=== PATIENT | male | born 1980 | race Caucasian/White ===

== ENCOUNTER 2016-09-29 09:00 | Emergency (ER) | payer BC, OTHER ==
[~2016-09-29] VITALS: Ht 180.3 cm; Wt 82.6 kg
[2016-09-29 09:06] VITALS: TEMP 36.7; Ht 180.3 cm; Wt 82.6 kg
[2016-09-29] MEDS ORDERED: ASPI-390 PO (09:26)
[2016-09-29] MEDS ORDERED: KETOROLAC TROMETHAMINE 30 MG/ML VIAL IV STA (09:33)
--- NOTE | 2016-09-29 09:33 | EMERGENCY ROOM VISIT NOTE ---
History Report prepared by Landen: Jane Chnag Under the Supervision of: Dr. Shakir Mar M.D. First contact with patient: 09:26 Chief Complaint: GROIN PAIN Stated Complaint: EXTREME GROIN PAIN & VOMITING History of Present Illness The patient is a 36 year old male who presents to the Emergency Room with complaints of worsening groin pain that began 3 days ago. The patient states that the day before his pain began, he was pulling a portable air conditioner up stairs and felt something "pop" in his groin. The next morning, he woke up with some discomfort which has since worsened. Last night, the patient began vomiting. He was nauseated about an hour ago, but his nausea has eased up since then. He has not taken his temperature, but has not felt like he had a fever. He has been urinating and having bowel movements normally. He did not take anything for pain today. Source of History: patient Onset: 3 days ago Position: other (groin) Timing: worsening Associated Symptoms: + nausea, + vomiting Review of Systems All systems have been listed, reviewed, and are negative other than those previously mentioned. Please see Additional Medical History Sheet. Past Medical & Surgical Medical Problems: (1) No Known Active Medical Problems Family History Patient reports no known family medical history. Social History Smoking Status: Never Smoker Smokeless Tobacco Use: No Alcohol Use: none Occupation Status: employed Current/Historical Medications Scheduled Ektlmru-Gucqdjpjcoseo-Otwseyjy (Excedrin Migraine), 2 TAB PO DIRECTED Scheduled PRN Ibuprofen Tab (Motrin), 600 MG PO Q6H PRN for Pain Ondansetron Hcl (Zofran), 4 MG PO Q4 PRN for Nausea Oxycodone/Acetaminophen 5MG/325MG (Percocet 5MG/325MG), 1-2 TABLETS PO Q4H PRN for Pain Allergies Coded Allergies: No Known Allergies (Unverified , 09/29/16) Physical Exam Vital Signs Date Time Temp Pulse Resp B/P Pulse Ox O2 Delivery O2 Flow Rate FiO2 09/29/16 12:56 80 18 112/71 98 Room Air 09/29/16 11:16 109/62 09/29/16 09:06 36.7 101 18 111/76 96 Room Air Physical Exam GENERAL: Patient awake, alert, oriented x 3. Patient follows commands. Patient does not appear toxic. Patient is adequately hydrated and well- nourished. SKIN: No erythema, pallor, cyanosis or rash HEENT: Normal head, pupils equal, reactive to light and accommodation. Ears normal. ABDOMEN: Soft, nontender. : Patient has bilateral inguinal hernias with significant tenderness on the left side. Testicles are descended. Scrotum and penis appear normal. No discharge. EXTREMITIES: No signs of trauma or infection. NEUROLOGIC: Cranial nerves II-XII within normal limits. No gross motor sensory function deficits. Medical Decision & Procedures ER Provider Diagnostic Interpretation: Radiology results as stated below per my review and radiologist interpretation: ULTRASOUND KIDNEYS AND BLADDER CLINICAL HISTORY: Left flank pain. COMPARISON STUDY: No priors. TECHNIQUE: Real-time, grayscale, and color flow sonography of the kidneys and bladder is performed. Images are reviewed in the transverse and longitudinal planes. FINDINGS: Kidneys: The kidneys are normal in size and echotexture. The right kidney measures 11.1 cm in length and the left kidney measures 11.7 cm in length. There is no hydronephrosis. An extrarenal pelvis is noted on the left. No shadowing renal calculi are identified. There is no sonographic evidence of contour deforming renal mass lesion. No perinephric fluid is identified. Bladder: The bladder is decompressed and not well evaluated. Ureteral jets were not seen. IMPRESSION: 1. The kidneys are normal in size and without hydronephrosis. 2. The bladder was decompressed and not well evaluated. Electronically signed by: Girish Mireles M.D. 09/29/2016 10:59 AM Dictated Date/Time: 09/29/2016 10:58 AM ABDOMINAL ULTRASOUND. LEFT FLANK ULTRASOUND. HISTORY: Hernia left inguinal hernia. COMPARISON: None. FINDINGS: no evidence for left inguinal hernia. No evidence for flank hernia. IMPRESSION: No evidence for hernia Electronically signed by: Christian Valadez M.D. 09/29/2016 11:33 AM Dictated Date/Time: 09/29/2016 11:32 AM Laboratory Results 09/29/16 09:45 09/29/16 09:45 Test 09/29/16 09:45 09/29/16 11:40 Red Blood Count 5.02 M/uL (4.7-6.1) Mean Corpuscular Volume 88.4 fL (80-100) Mean Corpuscular Hemoglobin 30.7 pg (25-34) Mean Corpuscular Hemoglobin Concent 34.7 g/dl (32-36) RDW Standard Deviation 42.4 fL (36.4-46.3) RDW Coefficient of Variation 13.0 % (11.5-14.5) Mean Platelet Volume 10.7 fL (7.4-10.4) Anion Gap 6.0 mmol/L (3-11) Est Creatinine Clear Calc Drug Dose 96.9 ml/min Estimated GFR () 98.2 Estimated GFR (Non- 84.7 BUN/Creatinine Ratio 15.4 (10-20) Calcium Level 8.5 mg/dl (8.5-10.1) Urine Color DK YELLOW Urine Appearance CLEAR (CLEAR) Urine pH 5.5 (4.5-7.5) Urine Specific [place] 1.031 (1.000-1.030) Urine Protein NEG (NEG) Urine Glucose (UA) NEG (NEG) Urine Ketones TRACE (NEG) Urine Occult Blood NEG (NEG) Urine Nitrite NEG (NEG) Urine Bilirubin NEG (NEG) Urine Urobilinogen NEG (NEG) Urine Leukocyte Esterase TRACE (NEG) Urine WBC (Auto) 1-5 /hpf (0-5) Urine RBC (Auto) 0-4 /hpf (0-4) Urine Hyaline Casts (Auto) 1-5 /lpf (0-5) Urine Epithelial Cells (Auto) 20-30 /lpf (0-5) Urine Bacteria (Auto) NEG (NEG) Laboratory results as stated above per my review. Medications Administered Medications (Trade) Dose Ordered Sig/Mata Route Start Time Stop Time Status Last Admin Dose Admin Ketorolac Tromethamine (Toradol Inj) 30 mg NOW STAT IV 09/29/16 09:33 09/29/16 09:36 DC 09/29/16 09:47 30 MG ED Course 0928: The patient was evaluated in room B6. A complete history and physical examination was performed. 0933: Ordered Toradol Inj 30 mg IV. 1232: Upon reevaluation, the patient appeared to have improvement of his symptoms. I discussed today's findings with the patient. He verbalized agreement of the treatment plan. The patient was discharged home. Medical Decision Nurses notes reviewed. Medical history sheet reviewed. Differential diagnosis includes but is not limited to: Inguinal hernia, incarceration, testicular torsion, kidney stone, ruptured disc. On examination and appears the patient has a left inguinal hernia. Palpation in that area increases pain. Urinalysis does not reveal hematuria. Patient appears slightly dehydrated. Ultrasound of the kidney and inguinal area are negative for hydronephrosis, ureteral calculi or hernia. Despite that I still believe the patient's pain is most likely from a left inguinal hernia which is not incarcerated. The patient will be treated conservatively at this time with ibuprofen during the day and Percocet at night. He was encouraged to avoid any lifting greater than 10 pounds. He is to follow-up with his family physician this week. An MRI would be the test of choice to rule in or rule out a definite hernia. Back pathology remains a possibility as a cause for his pain. [place] Drug Monitoring Program Search Results: patient reviewed within database, no issues identified Impression Primary Impression: Inguinal hernia Scribe Attestation The scribe's documentation has been prepared under my direction and personally reviewed by me in its entirety. I confirm that the note above accurately reflects all work, treatment, procedures, and medical decision making performed by me. Departure Information Dispostion Home / Self-Care Prescriptions Ondansetron Hcl (ZOFRAN) 4 Mg Tab 4 MG PO Q4 Y for Nausea, #10 TAB Prov: Shakir Mar M.D. 09/29/16 Ibuprofen Tab (MOTRIN) 600 Mg Tab 600 MG PO Q6H Y for Pain, #30 TAB Prov: Shakir Mar M.D. 09/29/16 Oxycodone/Acetaminophen 5MG/325MG (PERCOCET 5MG/325MG) Tab 1-2 TABLETS PO Q4H Y for Pain, #20 TAB Prov: Shakir Mar M.D. 09/29/16 Referrals No Doctor, Assigned (PCP) Patient Instructions My [facility] [employer] Additional Instructions 600 mg ibuprofen every 6 hours until pain has resolved. Apply heat intermittently to your left groin area. 1-2 Percocet every 4 hours as needed for more severe pain. Do not drive or operate machinery while taking Percocet. 1 Zofran every 4 hours as needed for nausea. Follow-up with your family physician within the next 7 days. Return here sooner if pain is getting worse. Drink extra fluids. No lifting greater than 10 pounds for the next 10 days.
[2016-09-29 10:05] LABS: HEMATOCRIT 44.4 % (42-52); MEAN CELL VOLUME 88.4 fL (80-100); MEAN CORPUSCULAR HEMOGLOBIN 30.7 pg (25-34); MEAN CORPUSCULAR HGB CONC 34.7 g/dl (32-36); MEAN PLATELET VOLUME 10.7 fL (7.4-10.4); PLATELET COUNT 244 K/uL (130-400); RED BLOOD COUNT 5.02 M/uL (4.7-6.1); WHITE BLOOD COUNT 10.85 K/uL (4.8-10.8)
[2016-09-29 10:18] LABS: BUN/CREATININE RATIO 15.4 (10-20); CALCIUM 8.5 mg/dl (8.5-10.1); CREATININE 1.1 mg/dl (0.60-1.40); POTASSIUM 3.9 mmol/L (3.5-5.1)
--- NOTE | 2016-09-29 11:01 | DIAGNOSTIC IMAGING REPORT ---
ULTRASOUND KIDNEYS AND BLADDER CLINICAL HISTORY: Left flank pain. COMPARISON STUDY: No priors. TECHNIQUE: Real-time, grayscale, and color flow sonography of the kidneys and bladder is performed. Images are reviewed in the transverse and longitudinal planes. FINDINGS: Kidneys: The kidneys are normal in size and echotexture. The right kidney measures 11.1 cm in length and the left kidney measures 11.7 cm in length. There is no hydronephrosis. An extrarenal pelvis is noted on the left. No shadowing renal calculi are identified. There is no sonographic evidence of contour deforming renal mass lesion. No perinephric fluid is identified. Bladder: The bladder is decompressed and not well evaluated. Ureteral jets were not seen. IMPRESSION: 1. The kidneys are normal in size and without hydronephrosis. 2. The bladder was decompressed and not well evaluated. Electronically signed by: Girish Mireles M.D. 09/29/2016 10:59 AM Dictated Date/Time: 09/29/2016 10:58 AM
--- NOTE | 2016-09-29 11:35 | DIAGNOSTIC IMAGING REPORT ---
ABDOMINAL ULTRASOUND. LEFT FLANK ULTRASOUND. HISTORY: Hernia left inguinal hernia. COMPARISON: None. FINDINGS: no evidence for left inguinal hernia. No evidence for flank hernia. IMPRESSION: No evidence for hernia Electronically signed by: Christian Valadez M.D. 09/29/2016 11:33 AM Dictated Date/Time: 09/29/2016 11:32 AM
[2016-09-29 12:03] LABS: MANUAL MICROSCOPIC REQUIRED? NO; REVIEW REQ? NO; URINE APPEARANCE CLEAR (CLEAR); URINE BILIRUBIN NEG (NEG); URINE COLOR DK YELLOW; URINE EPITHELIAL CELL AUTO 20-30 /lpf (0-5); URINE NITRITE NEG (NEG); URINE PH 5.5 (4.5-7.5); URINE SPECIFIC GRAVITY 1.031 (1.000-1.030); UROBILINOGEN NEG (NEG); ZZUR CULT IF INDIC CLEAN CATCH NO
[2016-09-29] MEDS ORDERED: IBUP-1427 PO (12:48)
[2016-09-29] MEDS ORDERED: OXYC-57 PO (12:48)
[2016-09-29 12:56] VITALS: BP 112/71; PULSE 80; O2SAT 98
[2016-09-29] MEDS ORDERED: ONDA4TAB46 PO (13:03)
== END 2016-09-29 12:57 | disposition home or self-care (01) ==
LOC: C.EDB 09:02
DX: K40.90 Unilateral inguinal hernia, without obstruction or gangrene, not specified as recurrent (principal)

== ENCOUNTER → 2016-10-02 | Outpatient (CLI) | payer BC ==
[~2016-10-02] MED LIST: ASPI-390 PO; IBUP-1427 PO; ONDA4TAB46 PO; OPTIRAY 320 IV PRN; OXYC-57 PO
--- NOTE | 2016-10-02 08:15 | DIAGNOSTIC IMAGING REPORT ---
CT SCAN OF THE ABDOMEN AND PELVIS WITH IV CONTRAST CLINICAL HISTORY: Pelvic and groin pain. COMPARISON STUDY: Renal ultrasound dated 09/29/2016. TECHNIQUE: Following the IV administration of 94 cc of Optiray 320, CT scan of the abdomen and pelvis is performed from the lung bases to the proximal femora. Images are reviewed in the axial, sagittal, and coronal planes. IV contrast was administered without complication. Automated dose control exposure was utilized. CT DOSE: 485.70 mGy.cm FINDINGS: Lung bases: The heart is normal in size and without pericardial effusion. The lung bases are clear. Liver: The contrast-enhanced liver is normal in size, contour, and attenuation. There is no intrahepatic biliary ductal dilatation. The hepatic veins and portal veins are patent. Focal fatty infiltration is seen adjacent to the falciform ligament. Gallbladder: Unremarkable. Spleen: Normal in size and attenuation. Pancreas: Unremarkable. Adrenal glands: Unremarkable. Kidneys: The contrast enhanced kidneys are normal in size and without hydronephrosis. There are small bilateral extrarenal pelvises. The kidneys enhance symmetrically. Abdominal vasculature: The abdominal aorta is normal in course and caliber. Bowel: The small bowel and colon are normal in course and caliber. There is moderate colonic fecal retention. The appendix is well-visualized and normal. Peritoneum: There is no intraperitoneal free air or abdominal ascites. There is a small fat-containing umbilical hernia. Lymphadenopathy: None. Pelvic viscera: The bladder is decompressed and grossly unremarkable. The prostate and seminal vesicles are normal as imaged. Pelvic phleboliths are observed. Skeletal structures: No lytic or blastic lesions are seen. IMPRESSION: 1. There are no acute infectious or inflammatory findings in the abdomen or pelvis. 2. Moderate colonic fecal retention. Electronically signed by: Girish Mireles M.D. 10/02/2016 8:13 AM Dictated Date/Time: 10/02/2016 8:09 AM
== END | disposition home or self-care (01) ==
LOC: C.CTS 07:45
PROVIDERS: ATTEND Family Medicine
DX: R10.2 Pelvic and perineal pain (principal); K59.00 Constipation, unspecified